=== PATIENT | female | born 2000 | race Caucasian/White ===

== ENCOUNTER → 2021-05-21 15:46 | Outpatient (CLI) | payer OTHER, SELFPAY ==
--- NOTE | 2021-05-21 14:30 | DI.RAD_ITS ---
Exam(s) XR TOE RT GREAT EXAM: XR TOE RT GREAT CLINICAL HISTORY: injury right great toe,crush,s97.111a TECHNIQUE: COMPARISON: No exams were available for comparison FINDINGS: Three views were obtained. There is no evidence of acute fracture or dislocation. IMPRESSION: RADIATION DOSE DELIVERED: Total DLP
== END ==
PROVIDERS: Visit Provider Physician Assistant
DX: S97.111A Crushing injury of right great toe, initial encounter (principal); X58.XXXA Exposure to other specified factors, initial encounter
CPT/HCPCS: 73660

== ENCOUNTER 2021-07-22 09:02 | Emergency (ER) | payer OTHER, SELFPAY ==
[2021-07-22 09:13] VITALS: BP 145/74; PULSE 78; RESP 18; O2SAT 100
--- NOTE | 2021-07-22 09:15 | DI.RAD_ITS ---
Exam(s) XR HAND RT COMPLETE EXAM: XR HAND RT COMPLETE CLINICAL HISTORY: Punched a pole R/O Fx. TECHNIQUE: 2D digital imaging was performed. COMPARISON: No exams were available for comparison FINDINGS: 3 views There is no evidence of fracture nor dislocation. No radiopaque foreign body. No osseous lesions. IMPRESSION: No significant radiograph findings in the right hand. DATA REPOSITORY: RADIATION DOSE DELIVERED:
--- NOTE | 2021-07-22 09:17 | W.ED.GENAD ---
Discharge Plan Disposition Patient Disposition: HOME Condition: Stable Discharge Details Clinical Impression: Jammed interphalangeal joint of finger of right hand, Hand sprain Primary Care Provider: Unknown,Unknown ED Provider: Ramona Koch Meds and New Rx's Prescriptions: Continued sertraline 50 mg tablet 50 mg PO DAILY No Action cephalexin 500 mg capsule 500 mg PO QID Qty: 28 0RF Discharge Instructions Instructions: Jammed Finger (ED), Hand Sprain (ED) Additional Instructions: There are no evidence of acute fractures to your hand. Continue with rest ice compression elevation. You may keep your finger page taped to splint it. Please take Tylenol or Ibuprofen with food every 4-6 hours as needed for pain and swelling. Follow up with primary care provider in 3-5 days. Return to ED sooner if any worsening or concerns. Increase oral fluids. Stand Alone Forms: Work Release Discharge Data Discharge Date/Time-TO BE ENTERED AT DEPARTURE: 07/22/21 10:39 Medical Decision Making 20-year-old female presents to the ER with a chief complaint of right hand pain status post punching a pole on yesterday. She was seen at [facility] and had a hand x-ray which she reports that showed nothing broken. She iced it for a little bit prior to arrival. She has not taken any ibuprofen or Tylenol. There is no obvious deformity she does have some tenderness noted on her metacarpal. Distal CMS intact. X-ray right hand, urine ordered ice Tylenol. Imaging shows no significant fracture dislocation. Patient was placed in page tape instructed on RICE procedures. Discussed Tylenol ibuprofen. This text was generated using [employer] dictation system, please disregard any oddities of phrase or misspellings. HPI General Mode of arrival: ambulatory. Date/Time Provider Initiated Documentation: 07/22/21 09:15. Limitations to Documentation: no limitations. Information obtained by: patient and RN notes reviewed. HPI Narrative: 20-year-old female presents to the ER with a chief complaint of right hand pain status post punching a pole on yesterday. She was seen at [facility] and had a hand x-ray which she reports that showed nothing broken. She iced it for a little bit prior to arrival. She has not taken any ibuprofen or Tylenol. There is no obvious deformity she does have some tenderness noted on her metacarpal. Distal CMS intact. Related Data Home Medications Medication Instructions Recorded Confirmed sertraline 50 mg tablet 50 mg PO DAILY 05/21/21 05/29/21 cephalexin 500 mg capsule 500 mg PO QID #28 caps 05/28/21 05/28/21 Previous Rx's Medication Instructions Recorded cephalexin 500 mg capsule 500 mg PO QID #28 caps 05/28/21 Allergies Allergy/AdvReac Type Severity Reaction Status Date / Time No Known Allergies Allergy Verified 05/28/21 15:48 General Stated Complaint: Orthopedic SKYLAR: 4 Review of Systems Musculoskeletal Musculoskeletal: Reports as per HPI, Denies deformity and Reports other (Right hand pain) PFSH All Active Problems (Updated 07/22/21 @ 10:30 by Ramona Koch) Jammed interphalangeal joint of finger of right hand (Acute) Hand sprain (Acute) Social History Smoking/Tobacco Use Status: Never Smoking risk assessment performed?: Yes Alcohol Intake: never Drug use: Never Substance use type: does not use Do you feel safe at home: Yes Do you feel safe in your relationship?: Yes Exam Extrem Right upper extremity: hand Details: normal capillary refill, swelling Location: of the dorsal hand (Slightly) Location: over the 5th metacarpal and abrasion (Multiple); no lacerations Left upper extremity: normal to inspection Course Vital Signs Vital signs: Vital Signs Pulse 78 07/22/21 09:13 Respiratory Rate 18 07/22/21 09:13 Blood Pressure 145/74 H 07/22/21 09:13 Pulse Oximetry 100 07/22/21 09:13 Pulse 78 07/22/21 09:13 Respiratory Rate 18 07/22/21 09:13 Blood Pressure 145/74 H 07/22/21 09:13 Blood Pressure Position Sitting 07/22/21 09:13 Pulse Oximetry 100 07/22/21 09:13 Oxygen Delivery Method Room Air 07/22/21 09:13 Oxygen Flow Rate 0 07/22/21 09:13
[2021-07-22] MEDS: Acetaminophen 500 MG TAB PO (09:26)
[2021-07-22 09:59] VITALS: BP 135/75; PULSE 62; RESP 16; TEMP 37.1; O2SAT 98
== END 2021-07-22 10:39 | disposition home or self-care (01) ==
PROVIDERS: Emergency Provider Registered Nurse Emergency
DX: S63.8X1A Sprain of other part of right wrist and hand, initial encounter (principal); W22.02XA Walked into lamppost, initial encounter
CPT/HCPCS: 81025; 99283; 73130

== ENCOUNTER → 2021-12-05 14:56 | Outpatient (CLI) | payer OTHER, SELFPAY ==
--- NOTE | 2021-12-05 11:15 | DI.RAD_ITS ---
Exam(s) XR HAND LT COMPLETE EXAM: XR HAND LT COMPLETE CLINICAL HISTORY: PAIN IN LEFT HAND--M79.642. TECHNIQUE: 2D digital imaging was performed of the left hand. Three views were obtained. AP, later al and oblique views were obtained. COMPARISON: None. FINDINGS: BONES: No acute fracture is present. No bony destructive lesion is seen. JOINTS: No dislocation present. SOFT TISSUE: Normal. IMPRESSION: Unremarkable radiographs of the left hand. DATA REPOSITORY: RADIATION DOSE DELIVERED:
== END ==
PROVIDERS: Visit Provider Nurse Practitioner Family
DX: M79.642 Pain in left hand (principal)
CPT/HCPCS: 73130

== ENCOUNTER 2022-01-02 02:02 | Outpatient (CLI) | payer OTHER, SELFPAY ==
[2022-01-02] MEDS: Inhaler, Assist Device 1 EACH MC (15:38)
[2022-01-02] MEDS: Albuterol HFA 18 GM 200 PUFF INH IH (15:38)
--- NOTE | 2022-01-12 16:38 | W.PFT ---
Date of service: 01/02/22 Time of Service: 14:51 Pulmonary Function Test Result Requesting Provider William Worthy Indications: [place] Interpretation Spirometry: There is no airflow limitation. There is no significant bronchodilator response. Impression Normal spirometry Clinical Correlation therefore is recommended.
== END 2022-01-02 02:03 | disposition home or self-care (01) ==
LOC: RT 02:02
PROVIDERS: Visit Provider Chiropractor
DX: R06.09 Other forms of dyspnea (principal); J98.8 Other specified respiratory disorders
CPT/HCPCS: 94060